=== PATIENT | male | born 1955 | race Caucasian/White ===

== ENCOUNTER 2018-03-14 17:52 | Outpatient (CLI) | payer OTHER ==
--- NOTE | 2018-03-14 19:24 | CT Report ---
Reason: FLANK PAIN,RIGHT Procedure Date: 03/14/2018 Accession Number: [id number] / [id number] Procedure: CT - Abdomen/Pelvis W/O CPT Code: FULL RESULT: EXAM: CT ABDOMEN AND PELVIS EXAM DATE: 03/14/2018 06:04 PM. CLINICAL HISTORY: FLANK PAIN,RIGHT. COMPARISONS: None. TECHNIQUE: Routine helical CT imaging was performed through the abdomen and pelvis. IV contrast: No. Enteric contrast: No. Reconstructions: Coronal and sagittal. In accordance with CT protocol optimization, one or more of the following dose reduction techniques were utilized for this exam: automated exposure control, adjustment of mA and/or KV based on patient size, or use of iterative reconstructive technique. FINDINGS: Lung Bases: There are several tiny nonspecific subpleural nodules. There is a 3 mm right middle lobe nodule on series 3 image 12. There is a 3 mm left lower lobe nodule on image 22. There is mild basilar linear atelectasis. No pleural effusion. Liver: Normal in size and contour. Gallbladder/Bile Ducts: Unremarkable. Spleen: Normal. Pancreas: Normal. Adrenal Glands: Normal. Kidneys: There is a 3 mm distal right ureter stone. There is mild to moderate right hydronephrosis. There are 2 stones measuring 1-2 mm in diameter in the right kidney. No left-sided hydronephrosis or obstructing stone. There is a cortical cyst in the midpole left kidney measuring 36 mm in diameter. Peritoneal Cavity/Bowel: There are a mild to moderate number of diverticula. No localized inflammation of bowel. No abnormal fluid or gas collection. Pelvic Organs: No bladder stones. Vasculature: The abdominal aorta is normal in caliber. Bones: There are findings of posterior spine fusion with pedicle screws at L4, L5, and S1. No acute fracture. Other: None. IMPRESSION: 1. 3 mm distal right ureter stone with mild to moderate right hydronephrosis. 2. Tiny nonobstructing 1-2 mm right kidney stones. 3. Colonic diverticulosis without acute diverticulitis. [facility] The call report notification system was initiated by Dr. José Wright at 19:19 hrs on 03/14/18. The above findings were discussed with Emiliana Rivas Dr by Dr. José Wright at 19:22 hrs on 03/14/18.
== END 2018-03-14 17:53 | disposition home or self-care (01) ==
LOC: DI 17:52
PROVIDERS: ATTEND Physician Assistant
DX: N13.2 Hydronephrosis with renal and ureteral calculous obstruction (principal); K57.30 Diverticulosis of large intestine without perforation or abscess without bleeding
CPT/HCPCS: 74176

== ENCOUNTER 2021-06-04 08:56 | Outpatient (CLI) | payer OTHER ==
[2021-06-04 10:26] VITALS: BP 133/78
--- NOTE | 2021-06-04 10:26 | SLEEP CARE CONSULTATION ---
Information from patient questionnaire entered by Carmella Aguero MA. I have reviewed and concur with the information entered by Carmella Aguero MA. This document represents the service I personally performed and the decisions made by , Eliana Wellington ARNP. History of Present Illness Service Date and Time: 06/04/2021 0856 Reason for Visit: New patient (LAST SEEN 07/2015, NEEDS REFERRAL ), sleep apnea on CPAP therapy, Re-establish care Chief Complaint: reports: Unrefreshed sleep Date of Onset: ON AND OFF FOR MONTHS Usual bedtime: 930 PM Time it takes to fall asleep: 30 MINUTES Snores at night: Yes Observed to quit breathing while asleep: Yes Number of times waking at night: 1-2 Reasons for waking at night: reports: Other Toss, Turn, or Twitch while sleeping: No Recalls having dreams: Yes Usually gets out of bed at: 0600 -0700 Feels refreshed in the morning: No Morning headache: No Sleepy or fatigued during the day: No Ever fallen asleep while driving: No Takes day naps: No Dreams during day naps: No Prior sleep studies: Yes Year and Where: [facility] Additional HPI information: BORA URBANO was previously diagnosed to have severe, AHI 49, obstructive sleep apnea-hypopnea syndrome and returns today with spouse to re-establish care for CPAP therapy. - Parasomnia Symptoms Ever been unable to move upon waking from sleep: No Walks in sleep: No Talks in sleep: No Ever acted out dreams in sleep: No Ever felt weak in the knees when startled or emotional: No Bothered by creepy, crawly, restless sensations in legs: No Problems with memory or concentration: No CPAP Compliance Data - Data Reviewed with Patient Average duration of nightly device use: 8 HOURS 11 MINUTES Compliance rate %: 100 Current pressure setting (cmH2O): 11 Humidity settin Average residual AHI: 0.3 Average large leak: 2 MINUTES 11 SECONDS Compliance data discussion: He is using a full face mask. He was with [employer] but he quit using them due to prices of supplies. He changes the mask cushion between 4-6 weeks. He does have a back up mask if needed. Subjective Patient concerns: reports: mask leak noise (occasional when does not shave). denies: aerophagia, mask discomfort, air blowing in eyes, condensation in mask/hose, nasal congestion, dry mouth, nose, throat, epistaxis Observed to snore while using device: No Current pressure setting perceived as: comfortable (sometimes feels too low) On therapy, patient: reports: sleeping better, awakening more refreshed, being m ore awake and alert during the day, more rested overall. denies: drowsiness while driving Initial [place] Sleepiness Scale score: 0 (2021) Past Medical History Past Medical History: reports: Hypertension, Arrythmia (history, was converted and no longer happens), Other (COPD) Social History The patient's occupation is a [employer]. Patient is and lives in [place]. Have you smoked in the past 12 months: No Alcohol use: Yes Alcohol amount and frequency: FEW X DAILY Caffeine use: Yes Caffeine amount and frequency: 1 X DAILY Family History Family history of sleep disordered breathing: No Allergies and Home Medications Known drug allergies: Yes (MORPHINE) Drug allergies reviewed: Yes Home medication list reviewed: Yes Allergy and home medication list: Allergies morphine Allergy (Verified 09/28/12 10:51) Hallucinations Medications: Losartan Sotalol Gabapentin OTC Omeprazole Ibuprofen, prn Review of Systems Review of systems same as previous: No (right knee pain after twisting injury few weeks ago, not evaluated) Weight gain over past 5 years: 15 Weight loss over past 5 years: 5 Cardiovascular: reports: high blood pressure Respiratory: reports: wheeze Urinary: reports: frequency Ear/Nose/Throat: reports: tonsillectomy Musculoskeletal: reports: back pain Immunologic: reports: allergies to food or environment Physical Exam Vital signs obtained and entered by: Madelin AGUERO CMA [facility] Blood Pressure: 133/78 (RIGHT, PULSE 67, RESP 18,) Cuff size: wrist Heart Rate: 69 O2 Saturation: 97 (CLOTH MASK) Height: 6 ft 3 in Weight: 320 lb (WITH CLOTHES) Body Mass Index: 39.9 BMI Classification: Obese Impression and Plan 1. Obstructive Sleep Apnea-Hypopnea Syndrome, severe, with excellent treatment compliance and excellent apnea control. On CPAP therapy, the patient has better sleep quality and is more rested overall. Patient has a Remstar 60 series CPAP. I informed the patient that [employer] has a recall on several devices like the patients machine. Patient was encouraged to register their device online with [employer] for the recall to see if their device is affected. If their device is affected they should start a claim. Patient denies any black particles seen in machine or hoses, any unusual odors coming from device. Patient has not experienced any physical symptoms such as upper airway irritation, headache, skin or eye irritation, asthma, nausea/vomiting, difficulty breathing or chest pain. If patient is not able to sleep due to waking up choking, gasping for air or other respiratory distress that they may decide to continue using it until it is either replaced or repaired. Since the patients current machine is at least 5 years old, the patient is opting to update their device with a device that is not on the recall. Patient voiced understanding and agreement with plan. Patient's apnea severity and rationale for treatment to reduce apnea, improve sleep quality and reduce cardiovascular and cerebrovascular events was reviewed. I also reviewed the benefit of consistent device use of CPAP for COPD, hypertension and gastric reflux. 2. Obesity, unspecified. 2. Obesity, unspecified. Currently patients BMI is 39.9. Obesity increases the risk of apnea, CPAP pressure requirements and overall health risks especially cardiovascular and diabetes. Thus patient is advised to lose weight. Weight loss can be done with reducing portion size, reducing refined foods and balancing content with vegetables, fruit and whole grain foods. In addition, patient encouraged to get regular exercise. The patient's CPAP pressure range should accommodate some weight loss. Symptoms to report for additional pressure adjustment discussed. * Continue auto CPAP pressure at 11 cmH2O * Update device * Update supplies * Notify me if snoring with mask or feeling that the pressure is too much or too little * Attempt to lose weight * Call this office if any problems using CPAP * Return for follow up one month after obtains new device or sooner if concerns arise Counseling Topics: Spare mask, Weight loss health impact Visit Type: In Office Time Spent with Patient (minutes): 31 Provider Statement: I spent 100% of the Face to Face Visit with the patient with greater than 50% spent counseling the patient and coordination of care.
== END 2021-06-04 08:57 | disposition home or self-care (01) ==
LOC: SC 08:56
PROVIDERS: ATTEND Nurse Practitioner Family
DX: G47.33 Obstructive sleep apnea (adult) (pediatric) (principal); E66.9 Obesity, unspecified; Z68.39 Body mass index [BMI] 39.0-39.9, adult
CPT/HCPCS: 99203; 99212

== ENCOUNTER 2021-08-08 11:15 | Outpatient (CLI) | payer OTHER ==
--- NOTE | 2021-08-11 08:55 | XRAY Report ---
PROCEDURE: Knee 4 View RT INDICATIONS: RIGHT KNEE PAIN TECHNIQUE: ) views of the both knee(s) were acquired. AP, lateral, and patellar views of the right knee were then obtained. COMPARISON: None. FINDINGS: Bones: Tricompartmental degenerative changes with medial joint space narrowing and tricompartmental osteophytes. No fractures or dislocations. No suspicious bony lesions. Soft tissues: Suprapatellar joint effusion. No suspicious soft tissue calcifications. IMPRESSION: 1. 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 2. Suprapatellar joint effusion. Reviewed by: Kenneth Ennis on 08/11/2021 8:54 AM PDT Approved by: Kenneth Ennis on 08/11/2021 8:54 AM PDT Station ID: [id number]
== END 2021-08-08 23:59 | disposition home or self-care (01) ==
LOC: DI.WOS 11:15
PROVIDERS: ATTEND Physician Assistant
DX: M17.11 Unilateral primary osteoarthritis, right knee (principal); M25.461 Effusion, right knee

== ENCOUNTER 2022-05-14 08:55 | Outpatient (CLI) | payer MEDICARE ==
[2022-05-14 09:12] LABS: BASOPHILS # (AUTO) 0.1 10^3/uL (0.0-0.1); BASOPHILS % (AUTO) 0.9 %; EOSINOPHILS # (AUTO) 0.3 10^3/uL (0.0-0.7); EOSINOPHILS % (AUTO) 6.3 %; HCT - HEMATOCRIT 48.2 % (42.0-52.0); HGB - HEMOGLOBIN 15.9 g/dL (14.0-18.0); LYMPHOCYTES # (AUTO) 1.7 10^3/uL (1.5-3.5); LYMPHOCYTES % (AUTO) 30.8 %; MEAN CORPUSCULAR HEMOGLOBIN 31.6 pg (27.0-31.0); MEAN CORPUSCULAR VOLUME 95.8 fL (80.0-94.0); MEAN PLATELET VOLUME 9.7 fL (7.4-11.4); MONOCYTES # (AUTO) 0.7 10^3/uL (0.0-1.0); MONOCYTES % (AUTO) 12.6 %; NEUTROPHILS # (AUTO) 2.6 10^3/uL (1.5-6.6); PLT - PLATELET COUNT 249 10^3/uL (130-450); RED BLOOD COUNT 5.03 10^6/uL (4.70-6.10); WHITE BLOOD COUNT 5.4 x10^3/uL (4.8-10.8)
[2022-05-14 09:32] LABS: ALBUMIN 4.2 g/dL (3.2-5.5); ALBUMIN/GLOBULIN RATIO 1.3 (1.0-2.2); ALKALINE PHOSPHATASE 86 IU/L (42-121); ALT ALANINE AMINOTRANSFERASE 40 IU/L (10-60); AST ASPARTATE AMINOTRANSFERASE 36 IU/L (10-42); BILIRUBIN,TOTAL 1.4 mg/dL (0.2-1.0); BUN - BLOOD UREA NITROGEN 16 mg/dL (6-20); CARBON DIOXIDE - CO2 26 mmol/L (21-32); CHLORIDE 98 mmol/L (101-111); CHOL/HDL RATIO 3.4 (<5.0); CHOLESTEROL 160 mg/dL; CREATININE 0.9 mg/dL (0.6-1.2); GFR - MDRD 85 (>89); GLUCOSE 115 mg/dL (70-100); HDL CHOLESTEROL 47 mg/dL; LDL CHOLESTEROL,CALCULATED 89 mg/dL; LDL/HDL RATIO 1.9 (<3.6); POTASSIUM 4.1 mmol/L (3.5-5.0); SODIUM 135 mmol/L (135-145); TOTAL PROTEIN 7.5 g/dL (6.7-8.2); TRIGLYCERIDES 120 mg/dL; VLDL CHOLESTEROL 24 mg/dL
[2022-05-14 12:05] LABS: ESTIMATED AVERAGE GLUCOSE 103 mg/dL (70-100); HEMOGLOBIN A1c% 5.2 % (4.27-6.07)
== END 2022-05-14 08:56 | disposition home or self-care (01) ==
LOC: LAB 08:55
PROVIDERS: ATTEND Physician Assistant Medical
DX: I10 Essential (primary) hypertension (principal); E78.5 Hyperlipidemia, unspecified; Z12.5 Encounter for screening for malignant neoplasm of prostate; R73.03 Prediabetes
CPT/HCPCS: 36415; 80053; 80061; 83036; 85025; G0103; 83721; 84153

== ENCOUNTER 2022-07-10 08:00 | Outpatient (CLI) | payer MEDICARE ==
[2022-07-10 17:38] LABS: BILIRUBIN,URINE NEGATIVE (NEGATIVE); GLUCOSE, URINE (UA) NEGATIVE (NEGATIVE); KETONES,URINE (UA) NEGATIVE (NEGATIVE); LEUKOCYTE ESTERASE, URINE NEGATIVE (NEGATIVE); NITRITE,URINE NEGATIVE (NEGATIVE); OCCULT BLOOD,URINE NEGATIVE (NEGATIVE); PH,URINE 6.5 PH (5.0-7.5); PROTEIN,URINE NEGATIVE (NEGATIVE); UROBILINOGEN,URINE 1 (NORMAL) E.U./dL (NORMAL)
[2022-07-10 18:22] LABS: BACTERIA,URINE None Seen /HPF (None Seen); CLARITY,URINE CLEAR (CLEAR); RBC,URINE 0-5 /HPF (0-5); SQUAMOUS EPITHELIAL CELL,UR NONE SEEN (<= Few); WBC,URINE 0-3 /HPF (0-3)
== END 2022-07-10 23:59 | disposition home or self-care (01) ==
LOC: LAB.WCP 08:00
PROVIDERS: ATTEND Physician Assistant
DX: N40.1 Benign prostatic hyperplasia with lower urinary tract symptoms (principal)
CPT/HCPCS: 81001; 87086

== ENCOUNTER 2023-03-03 09:09 | Outpatient (CLI) | payer MEDICARE ==
[2023-03-03 09:34] LABS: ALBUMIN 4.5 g/dL (3.2-5.5); ALBUMIN/GLOBULIN RATIO 1.7 (1.0-2.2); BILIRUBIN,TOTAL 0.8 mg/dL (0.2-1.0); CALCIUM 9.9 mg/dL (8.5-10.3); CREATININE 0.8 mg/dL (0.6-1.3); TOTAL PROTEIN 7.2 g/dL (6.4-8.9)
[2023-03-03 10:10] LABS: ESTIMATED AVERAGE GLUCOSE 100 mg/dL (70-100); HEMOGLOBIN A1c% 5.1 % (4.27-6.07)
== END 2023-03-03 09:10 | disposition home or self-care (01) ==
LOC: LAB 09:09
PROVIDERS: ATTEND Physician Assistant Medical
DX: R73.03 Prediabetes (principal)
CPT/HCPCS: 36415; 80053; 83036

== ENCOUNTER 2023-04-23 09:52 | Outpatient (CLI) | payer MEDICARE ==
--- NOTE | 2023-04-23 11:10 | Sleep Patient Instructions ---
Sleep Center Visit Summary - Patient Visit Information Reason for Visit: 11 month followup - Patient Instructions Additional Instructions: You will continue with CPAP therapy with pressure set at 11 cmH2O. A supply prescription will be updated with your DME. I have added an update of your CPAP, your supplier should reach out to you to set this up. We encourage you to continue to try to lose weight. Please follow up with the sleep care office one month after obtaining new device. - Clinic Information Contact: [facility] [address] [place] [address] [email or web address] T: [phone]
[2023-04-23 11:16] VITALS: BP 169/96; O2SAT 96
--- NOTE | 2023-04-23 11:16 | SLEEP CARE CONSULTATION ---
Information from patient questionnaire entered by Krista Baez. I have reviewed and concur with the information entered by Krista Baez. This document represents the service I personally performed and the decisions made by me, Eliana Wellington ARNP. History of Present Illness Service Date and Time: 04/23/2023 0952 Previous diagnosis: Severe, Obstructive Sleep Apnea-Hypopnea Syndrome AHI: 49 (in 2013) Reason for follow up: other (11 MONTH F/U) Accompanied by: Spouse (Jose Luis) Equipment type: CPAP ([employer] REMstarMACHINE NEEDED) Equipment obtained from: [employer] (gets supplies but uses online sources because of high cost and long delivery times) Mask style: Full face Mask brand: Respironics (Keysha, large cushion) Backup mask available: Yes Last cushion change: 1 week Prior sleep studies: Yes Year and Where: [facility] HPI additional information: BORA URBANO was diagnosed to have severe, AHI 49, obstructive sleep apnea- hypopnea syndrome and returned today for CPAP therapy 11 months follow-up. Sleep Study - Results Prior sleep studies: Yes Year and Where: [facility] CPAP Compliance Data - Data Reviewed with Patient Average duration of nightly device use: 8 hours 20 minutes Compliance rate %: 100 (346/346 days used) Current pressure setting (cmH2O): 11 Average residual AHI: 0.2 Central apnea: 0 Obstructive apnea: 0 Hypopnea: 0.2 Average large leak: 27 mins 58 secs Subjective Patient concerns: reports: mask discomfort, air blowing in eyes (occasional). denies: aerophagia, mask leak noise, condensation in mask/hose, nasal congestion, dry mouth, nose, throat, epistaxis Observed to snore while using device: No Current pressure setting perceived as: comfortable On therapy, patient: reports: sleeping better, awakening more refreshed, being more awake and alert during the day, more rested overall. denies: drowsiness while driving Initial [place] Sleepiness Scale score: 0 (2021) Current [place] Sleepiness Scale score: 1 (04/23/23) Allergies and Home Medications Known drug allergies: Yes (morphine) Drug allergies reviewed: Yes Home medication list reviewed: Yes (no changes) Allergy and home medication list: Allergies morphine Allergy (Verified 04/21/23 10:14) Hallucinations Review of Systems Review of systems same as previous: Yes (NO CHANGE) Physical Exam Vital signs obtained and entered by: KRISTA Baker MA Blood Pressure: 169/96 (LEFT ARM) Cuff size: regular Heart Rate: 65 O2 Saturation: 96 Height: 6 ft 3 in Weight: 337 lb 12.8 oz Body Mass Index: 42.2 BMI Classification: Morbidly Obese Impression and Plan 1. Obstructive Sleep Apnea-Hypopnea Syndrome, severe, with good treatment compliance and good apnea control. On CPAP therapy, the patient has better sleep quality and is more rested overall. Patient has significant improvement of their sleep apnea and is satisfied with current CPAP therapy. He would like to have a different option for mask because a full face mask, Keysha, large cushion, does not feel like it fits him well. I fit him to a [employer]plus, large cushion, with good fit. He is going to try this, but if it is not a good fit he will ask for a another mask fitting. He has a REMstar device, his original machine. The patients CPAP is over 5 years old and of reasonable use. Thus, the CPAP will be updated. A DWO prescription will be made. Compliance guidelines for new device and follow up discussed.Patient's apnea severity and rationale for treatment to reduce apnea, improve sleep quality and reduce cardiovascular and cerebrovascular events was reviewed. I also reviewed the benefit of consistent device use of CPAP for hypertension, arrhythmia, gastric reflux and COPD. 2. Obesity, unspecified. Currently patients BMI is 42.2. Obesity increases the risk of apnea, CPAP pressure requirements and overall health risks especially cardiovascular and diabetes. Thus patient is advised to lose weight. * Continue auto CPAP pressure at 11 cmH2O * Update machine * Update supply prescription * Notify me if snoring with mask or feeling that the pressure is too much or too little * Attempt to lose weight * Call this office if any problems using CPAP * Return for follow up one month after obtaining new device, or sooner if concerns arise Counseling Topics: Spare mask, Weight loss health impact Prescriptions: Auto CPAP (updated), Device supplies Follow up with Sleep Care in: other (compliance visit) Visit Type: In Office Time Spent with Patient (minutes): 23 Provider Statement: I spent 100% of the Face to Face Visit with the patient with greater than 50% spent counseling the patient and coordination of care.
== END 2023-04-23 09:53 | disposition home or self-care (01) ==
LOC: SC 09:52
PROVIDERS: ATTEND Nurse Practitioner Family
DX: G47.33 Obstructive sleep apnea (adult) (pediatric) (principal); E66.01 Morbid (severe) obesity due to excess calories; Z68.41 Body mass index [BMI] 40.0-44.9, adult
CPT/HCPCS: 99213; G0463; 99212

== ENCOUNTER 2023-12-13 08:25 | Outpatient (CLI) | payer MEDICARE ==
[2023-12-13 09:07] LABS: ALBUMIN/GLOBULIN RATIO 1.3 (1.0-2.2); BILIRUBIN,TOTAL 1.3 mg/dL (0.2-1.0); CALCIUM 9.2 mg/dL (8.5-10.3); CREATININE 0.7 mg/dL (0.6-1.3); MAGNESIUM 1.6 mg/dL (1.7-2.3); POTASSIUM 3.8 mmol/L (3.5-4.5); TOTAL PROTEIN 7.1 g/dL (6.4-8.9)
== END 2023-12-13 08:26 | disposition home or self-care (01) ==
LOC: LAB 08:25
PROVIDERS: ATTEND Internal Medicine Cardiovascular Disease
DX: I48.91 Unspecified atrial fibrillation (principal); I10 Essential (primary) hypertension
CPT/HCPCS: 36415; 80053; 83735